=== PATIENT | male | born 1960 | race Caucasian/White ===

== ENCOUNTER 2024-12-20 11:29 | Emergency (ER) | payer OTHER, SELFPAY ==
--- OUTSIDE RECORDS SUMMARY | 2024-12-20 11:35 | XMS_ITS ---
Author Organization [facility] Address [address] [address] Care Team Providers Care Combatant Swimmer Name Role Phone Carolyne Mon Primary Care Provider Ollie Meng MD [phone] REASON FOR VISIT knee inj MEDICATIONS Medication SIG (Take, Route, Frequency, Duration) Notes Start Date End Date Status Diclofenac Active Desvenlafaxine ER Ac tive Tadalafil 5 MG as directed Act katerin Pravastatin Sodium 40 MG as directed Active methylPREDNISolone 4 MG as directed Orally 024 Active Diclofenac Sodium 75 MG 1 tablet as need ed Orally Twice a day for 30 08/19/2024 Active Pravachol Not-Taking Xarelto Not-Taking Voltaren Not-Taking OrthoVisc 30 MG/2ML inject one syringe i nto each knee Intra-articular in physicians office once a week for 3 weeks for 30 days 03/27/2023 Active BuPROPion HBr Active Meclizine HCl Active Pristiq Active Pantoprazole Sodium Active Encounters Encounter Location Date Provider Diagnosis [facility] [address] [address] 09/29/2024 Ollie Fuller MD Localized primary osteoarthritis of left lower leg M17.12 ASSESSMENTS Encounter Date Diagnosis Assessment Notes Treatment Notes Treatment Clinical Notes 09/29/2024 Localized primary osteoarthritis of left lower leg (ICD-10 - M17.12) PLAN OF TREATMENT No Information History and Physical Notes * HPI (History of Present Illness) Category Sub-Category Detail Notes Depression Screening PHQ-2 (2015 Edition) Little interest or pleasure in doing things?: Not at all Feeling down, depressed, or hopeless?: N ot at all Total Score: 0
--- OUTSIDE RECORDS SUMMARY | 2024-12-20 11:35 | XMS_ITS | Clinical Summary ---
Author Organization [facility] Address [address] [place] [address] Care Team Providers Care Patient Coordinator Name Role Phone Carolyne Mon MD Primary Care Provider Allergies No known active allergies Medications valACYclovir (VALTREX) 500 mg tablet 500 mg. 0 0 4 Active desvenlafaxine ER (PRISTIQ) 50 mg 24 hr tablet 50 mg. 0 0 4 Active cyclobenzaprine (FLEXERIL) 10 mg tablet Take 1 tablet (10 mg total) by mouth 3 (three) times a day as needed Active diclofenac DR (VOLTAREN) 75 mg EC tablet Take 1 tablet (75 mg total) by mouth 3 (three) times a day as needed Active pravastatin (PRAVACHOL) 40 mg tablet 3 Active tadalafiL (CIALIS) 5 mg tablet TAKE 1-4 TABLETS BY MOUTH NEEDED PRIOR TO INTERCOURSE 3 Active Active Problems Problem Noted Date Diagnosed Date Cellulitis 07/31/2014 Overview (02/15/2017): Cellulitis Medical History Medical History Date Comments High cholesterol Social History Tobacco Use Types Packs/Day Years Used Date Smoking Tobacco: Never Tobacco Cessation:Counseling Given: Not Answered AUDIT-C Answer Date Recorded Q1: How often do you have a drink containing alc ohol? Never 06/29/2021 Average Number of Drinks Not on file 021 Frequency of Binge Drinking Not on file 06/11 Personal Safety Answer Date Recorded Getting School Help Needed Not on file 10/22 Sex and Gender Information Value Date Recorded Sex Assigned at Not on file Legal Sex Male 10:41 AM RADIOLOGY SPECIALIST Gender Identity Not on file Sexual Orientation Not on file Obstetrics History Last Filed Vital Signs Vital Sign Reading Time Taken Comments Blood Pressure 140/88 10/17/2023 6:43 PM RADIOLOGY SPECIALIST Pulse 114 10/17/2023 6:43 PM RADIOLOGY SPECIALIST Temperature 37.1 C (98.8 F) 10/17/2023 6:43 PM RADIOLOGY SPECIALIST Respiratory Rate 20 10/17/2023 6:43 PM RADIOLOGY SPECIALIST Oxygen Saturation 97% 10/17/2023 6:43 PM RADIOLOGY SPECIALIST Inhaled Oxygen Concentration - - Weight 97.5 kg (215 lb) 10/17/2023 6:43 PM RADIOLOGY SPECIALIST Height 196.9 cm (6' 5.5 ) 10/17/2023 6:43 PM RADIOLOGY SPECIALIST Body Mass Index 25.17 10/17/2023 6:43 PM RADIOLOGY SPECIALIST Plan of Treatment Health Maintenance Due Date Last Done Comments Colon Cancer Screening-Colonoscopy 1960 Depression Screening 1960 Hepatitis C Screening 1960 Prostate Cancer Screening-PSA 1960 Hepatitis B Screening 1978 Regular Well Visit/Exam 18-64 1978 Zoster Vaccine (2 of 3) 04/17/2015 02/21/20 15, 05/13/2013 Covid-19 Vaccine (2023-2 5 season) 2024 11/09/2021, 01/03/2021, 12/06/2020 Influenza Vaccine (#1) 2024 , 08/22/2022 DTaP/Tdap/Td Vaccine (2 - Td or Tdap) 08/30/2033 08/30/2023 Pneumococcal vaccine <65 Aged Out No longer eligible based on patient's age to complete this topic Insurance [facility] CHOICE PLUS [facility] HMO/PPO Address[place] [id number] [place] [id number] [facility] CHOICE PLUS [facility] HMO/PPO Address: [facility] [address] [place] [id number] Care Teams Patient Coordinator Relationship Specialty Start Date End Date Carolyne Mon MD [address] [facility] [address] [address] PCP - General 04/11/17
--- OUTSIDE RECORDS SUMMARY | 2024-12-20 11:35 | XMS_ITS | Referral Summary ---
Author Organization [facility] Address [address] [facility] [place] [address] Care Team Providers Care Tester Regulator Name Role Phone Unavailable Primary Care Provider Unavailabl e Source Comments [facility] Affiliates and Associated Physician Practices is amultiple site organization consisting of ambulatory clinics and hospital sitesin [place], [place], [place] and [place]. This disclosure is being madepursuant to the Care Everywhere program and may not contain all information available regarding this patient. Last updated 18.[facility] [employer] Social History Tobacco Use Types Packs/Day Years Used Date Smoking Tobacco: Never Assessed Sex and Gender Information Value Date Recorded Sex Assigned at Not on file Gender Identity Not on file Sexual Orientation Not on file Plan of Treatment Not on file
--- OUTSIDE RECORDS SUMMARY | 2024-12-20 11:35 | XMS_ITS ---
Author Organization [facility] Address [address] [facility] [address], [place] [address] Care Team Providers Care Tier Lift Truck Operator Name Role Phone Carolyne Mon Primary Care Provider Unavailjovana Fuller MD, Ollie Unavailable Mat EATON, Rita Unavailable [phone] REASON FOR VISIT RE:RE:Addendum MEDICATIONS Medication SIG (Take, Route, Fr equency, Duration) Notes Start Date End Date Status Diclofenac Sodium 75 MG 1 tablet as need ed Orally Twice a day for 30 10/26/2024 Active Encounters Encounter Location Date Provider Diagnosis [facility] [address] [facility] [address], [place] [address] 10/23/2024 Rita Rivero NP PLAN OF TREATMENT Medication Medication Name Sig Start Date Stop Date Notes Diclofenac Sodium 75 MG 1 tablet as need ed Orally Twice a day for 30 10/26/2024
--- OUTSIDE RECORDS SUMMARY | 2024-12-20 11:35 | XMS_ITS | Patient Health Record ---
Author Organization [facility] Address [address] [place], [place] [id number] Care Team Providers Care Rhia Name Role Phone Carolyne Mon Primary Care Provider Francisco Romano Unavailable [phone] Migration, Provider Unavailable Unavailable Allergies No Known Allergies Reason For Referral No Information Medications Medication SIG (Take, Route, Frequency, Duration) Notes Start Date End Date Status PREVASTATIN QD *Please review f or potential replacement for e-prescription and drug interaction check* Active Diclofenac Potassium SODIUM 25 MG 1 TAB(S) ORALLY 4 TIMES A DAY for 30 DAY(S) *Please review and pick correct strength-formulatio n from Medispan options. If intended option is not shown, discontinue and re-order from Quick Search* Active Pantoprazole Sodium 40 MG 1 tab(s) orally once a day for 30 day(s) Active Meclizine HCl 25 MG 1 tab(s) orally 3 times a day Active buPROPion HCl 100 MG 1 tab(s) orally 2 times a day for 30 day(s) Active Encounters Encounter Location Date Provider Diagnosis [facility] [address] [place], [place] [phone] 10/24/2024 Provider Migration Plan Of Treatment No Information Insurance Providers Payer Name Payer Address Payer Phone Subscriber Number Group Number Insured Name Patient Relationship to Insured Coverage Start Date Coverage End Date [facility] [address] [place] [address] [id number] Chau Branham Self - patient is the insured Medical (General) History Medical History History ICD Code Pertinent Medical History: Eye problems, Vision changes, Anxiety/Depression, Surgical History Surgery Date(Month/Year) tonsillectomy ankle surgery appendectomy
--- OUTSIDE RECORDS SUMMARY | 2024-12-20 11:35 | XMS_ITS | Encounter Summary ---
Author Organization [facility] Address [address] [facility] [place] [address] Care Team Providers Care Composition Mixer Name Role Phone Unavailable Primary Care Provider Unavailabl e Encounter Details Date Type Department Care Team (Late st Contact Info) Description 02/27/2024 Lab Requisition [facility] - DermPath Lab [address] [facility] [place] [id number] Audie Parrish DO [address] [address] Social History Tobacco Use Types Packs/Day Years Used Date Smoking Tobacco: Never Assessed Sex and Gender Information Value Date Recorded Sex Assigned at Not on file Gender Identity Not on file Sexual Orientation Not on file documented as of this encounter Plan of Treatment Not on file documented as of this encounter Procedures Procedure Name Priority Date/Time Associated Diagnosis Comments DERMATOPATHOLOGY Routine 02/26/2024 3:33 AM CDT documented in this encounter Results * DERMATOPATHOLOGY (02/26/2024 3:33 AM CDT) Case Report Dermatopathology Report Case: [id number] Authorizing Provider: Audie Parrish DO Collected: 02/26/2024 03:33 AM Ordering Location: [facility] - Received: 02/27/2024 09:53 AM DermPath Lab Pathologist: Stephani Pelaez MD Specimen: Skin, left palm 4 5:31 PM CDT DERMATOPATHOLOGY LABORATORY Final Diagnosis Specimen A. SKIN, left palm: GRANULOMATOUS DERMATITIS CONSISTENT WITH A RUPTURED CYST OR HAIR FOLLICLE (L72.0) (see microscopic description and comment) 4 5:31 PM CDT DERMATOPATHOLOGY LABORATORY Clinical History Neoplasm Scar 4 5:31 PM CDT DERMATOPATHOLOGY LABORATORY Gross Description Specimen A: Received is one formalin filled container labeled with the patient's name and designated left palm. The specimen consists of a piece of skin measuring 7x7x2 mm. The margin is inked green. The specimen is bisected lengthwise and submitted in 1 cassette. Jar 0. 4 5:31 PM T DERMATOPATHOLOGY LABORATORY Microscopic Description Specimen A. SKIN, left palm: Neutrophils, histiocytes, and multinucleated giant cells are present within the dermis and extend to the base of the specimen. Grocott's methenamine silver (GMS) stain fails to highlight fungal elements in the available sections. MANI stain is negative for acid-fast mycobacteria in the sections examined. Treponema pallidum immunostain does not reveal spirochetes. Birefringent material is not observed when the specimen is examined under polarized light. Additional deeper sections were obtained and reviewed. COMMENT: The overall histologic features are consistent with a ruptured follicle or cyst. The histologic differential diagnosis includes foreign body reaction. Although unlikely given the negative GMS, MANI, and Treponema pallidum immunostain, an infectious process cannot be entirely excluded, and clinical correlation with culture is recommended if clinically indicated. 4 5:31 PM CDT DERMATOPATHOLOGY LABORATORY Disclaimer An external and internal positive and negative controls are appropriate for the histochemical, immunohistochemical and immunofluorescence stain(s) in this case (if any), except where stated explicitly. The performance characteristics of the stain(s) cited in this report were developed and its performance characteristic determined by the Dermatopathology Laboratory at [facility], directed by Dr. Jordi Treviño. These tests need not be, and therefore are not, approved by the [place] Food and Drug Administration. The tests are used for clinical purposes. Billing Codes Specimen Charges Stain Charges 72653 1 [id number] 1 1 1 4 5:31 PM CDT DERMATOPATHOLOGY LABORATORY Embedded Images 4 5:31 PM CDT DERMATOPATHOLOGY LABORATORY Pathology/Cytolo gy TISSUE SPECIMEN FROM SKIN / Unknown 02/26/2024 3:33 AM CDT 02/27/2024 9:53 AM CDT Audie Parrish DO LAB - PATHOLOGY/CYTO LOGY ORDERABLES DERMATOPATHOLOGY LABORATORY [facility] - Department of Dermatology [facility] [address] [place] [address], [address] [phone] documented in this encounter Visit Diagnoses Not on filedocumented in this encounter
--- OUTSIDE RECORDS SUMMARY | 2024-12-20 11:35 | XMS_ITS | Clinical Summary ---
Author Organization [facility] Address [address] [place] [address] Phone Care Team Providers Care Analytical Laboratory Technician Name Role Phone Carolyne Mon MD Primary Care Provider [phone] Allergies Active Allergy Reactions Criticality Noted Date Comments No Known Drug Allergy Unknown 05/03/2013 Medications diclofenac 75 MG PO TBEC Take 75 mg by mouth 3 times daily as needed. Active Desvenlafaxine Succinate 100 MG TABLET SR 24 HR Take 1 Tab by mouth daily. Active cyclobenzaprine (FLEXERIL) 10 MG Tablet Take 10 mg by mouth 3 times daily as needed for Muscle spasms. Active VALGANCICLOVIR HCL PO Take 1 Tab by mouth. Active Multiple Vitamins-Minera ls (MULTIVITAMIN PO) Take 1 Tab by mouth daily. Active pravastatin (PRAVACHOL) 10 MG Tablet 9 Active XARELTO 20 MG Tablet TK 1 T PO IN THE JEFFRY WITH DINNER TK WF 5 9 Active pravastatin (PRAVACHOL) 20 MG Tablet 9 Active diclofenac (VOLTAREN) 0.1 % SolutionIndicat ions:Abrasion of right cornea, initial encounter Place 1 Drop in affected eye(s) 4 times daily as needed for Other. 1 Bottle 0 Active Additional Information Patient not taking.Reported on 03/08/2024 buPROPion (WELLBUTRIN) 150 MG XL tablet 2 Active Active Problems No known active problems Family History Medical History Relation Name Comments Stroke Father Polycystic Kidney Disease Mother Relation Name Status Comments Father Mother Social History Tobacco Use Types Packs/Day Years Used Date Smoking Tobacco: Never Smokeless Tobacco: Never Tobacco Cessation:Counseling Given: Not Answered Alcohol Use Standard Drinks/Week Comments No 0 (1 standard drink = 0.6 oz pur e alcohol) Sexually Active Control Partners Comments Not Currently Sex and Gender Information Value Date Recorded Sex Assigned at Not on file Legal Sex Male 8:01 AM CDT Gender Identity Not on file Sexual Orientation Not on file 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 Not on file Not on f ile Last Filed Vital Signs Vital Sign Reading Time Taken Comments Blood Pressure 108/76 03/08/2024 1:51 PM CDT Pulse 114 03/08/2024 1:51 PM CDT Temperature 36.3 C (97.3 F) 03/08/2024 1:51 PM CDT Respiratory Rate 16 03/08/2024 1:51 PM CDT Oxygen Saturation 98% 03/08/2024 1:51 PM CDT Inhaled Oxygen Concentration - - Weight 102.1 kg (225 lb) 12/18/2023 8:45 AM MAGNETIZER Height 196.9 cm (6' 5.5 ) 12/18/2023 8:45 AM MAGNETIZER Body Mass Index 26.34 12/18/2023 8:45 AM MAGNETIZER Plan of Treatment Health Maintenance Due Date Last Done Comments Hepatitis C Virus (HCV) Screening 1960 Cologuard 2010 Immunochemical Fecal Occult Blood 2010 Pneumococcal Immunization (5 0+ years) (1 of 1 - PCV) 2010 Zoster Immunization (2 of 3) 04/17/201510/2015, 05/13/2013 PSA Discussion 2015 Influenza Immunization (#1) 2024 10, 08/22/2022 SARS-COV-2 Immunization ( season) 2024 11/09/2021, 01/03/2021, 12/06/2020 Colonoscopy 08/10/2026 08/10/2016 Colorectal Cancer Screening 08/10/2026 Respiratory Syncytial Virus (RSV) Immunization (Adult) (1 - 1-dose 75+ series) 2035 08/10/2016 DTaP/Tdap/Td Immunization Discontinued 08/30/2023 TdaP Immunization Completed 08/30/2023 Hepatitis B Immunization Aged Out No longer eligible based on patient's age to complete this topic Meningococcal Immunization (ACWY) Aged Out No longer eligible based on patient's age to complete this topic Pneumococcal Immunization Combined Aged Out No longer eligible based on patient's age to complete this topic Rotavirus Immunization Aged Out No lo nger eligible based on patient's age to complete this topic Insurance [facility] Care Teams Analytical Laboratory Technician Relationship Specialty Start Date End Date Carolyne Mon MD [address] [facility] [place] [address] [place] [address] PCP - General Internal Medicine 08/02/16
--- OUTSIDE RECORDS SUMMARY | 2024-12-20 11:35 | XMS_ITS | Encounter Summary ---
Author Organization [facility] Address [address] [facility] [place] [address] Care Team Providers Care Manager Of Development Name Role Phone Unavailable Primary Care Provider Unavailabl e Encounter Details Date Type Department Care Team (Late st Contact Info) Description 06/04/2023 Lab Requisition [facility] - [facility]erm[facility] Lab [address] [facility] [place] [address] Audie Parrish DO [address] [address] Social History Tobacco Use Types Packs/Day Years Used Date Smoking Tobacco: Never Assessed Sex and Gender Information Value Date Recorded Sex Assigned at Not on file Gender Identity Not on file Sexual Orientation Not on file documented as of this encounter Plan of Treatment Not on file documented as of this encounter Procedures Procedure Name Priority Date/Time Associated Diagnosis Comments DERMATOPATHOLOGY Routine 06/03/2023 12:0 0 AM CDT documented in this encounter Results * DERMATOPATHOLOGY (06/03/2023 12:00 AM CDT) Case Report Dermatopathology Report Case: [id number] Authorizing Provider: Audie Parrish DO Collected: 06/03/2023 12:00 AM Ordering Location: [facility] DermPath Lab Received: 06/04/2023 11:19 AM Pathologist: Shwetha Niño MD Specimen: Skin, right hand 3:15 PM CDT DERMATOPATHOLOGY LABORATORY Final Diagnosis Specimen A. SKIN, right hand: VACUOLAR INTERFACE DERMATITIS WITH FULL THICKNESS EPIDERMAL NECROSIS (L30.8) (see microscopic description and comment) 3 3:15 PM CDT DERMATOPATHOLOGY LABORATORY Clinical History Bee sting 3 3:15 PM CDT DERMATOPATHOLOGY LABORATORY Gross Description Specimen A: Received is one formalin filled container labeled with the patient's name and designated right hand. The specimen consists of a curettage and desiccation biopsy measuring 3x3x1 mm. Jar 0. 3 3:15 PM T DERMATOPATHOLOGY LABORATORY Microscopic Description Specimen A. SKIN, right hand: There is full thickness epidermal necrosis. Adjacent to this there are scattered dyskeratotic keratinocytes and vacuolar alteration along the basal cell layer. A mild, perivascular lymphocytic infiltrate is observed in the superficial dermis. HSV and VZV stains are negative for viral infection. Additional deeper sections were obtained and reviewed. COMMENT: Given the superficial nature of the biopsy specimen, a deeper dermal process cannot be excluded. 3 3:15 PM T DERMATOPATHOLOGY LABORATORY Disclaimer An external and internal positive and negative controls are appropriate for the histochemical, immunohistochemical and immunofluorescence stain(s) in this case (if any), except where stated explicitly. The performance characteristics of the stain(s) cited in this report were developed and its performance characteristic determined by the Dermatopathology Laboratory at [facility], directed by Dr. Jordi Treviño. These tests need not be, and therefore are not, approved by the [place] Food and Drug Administration. The tests are used for clinical purposes. Billing Codes Specimen Charges Stain Charges 23784 1 [id number] 1 1 3 3:15 PM CDT DERMATOPATHOLOGY LABORATORY Embedded Images 3 3:15 PM CDT DERMATOPATHOLOGY LABORATORY Pathology/Cytolog y TISSUE SPECIMEN FROM SKIN / Unknown 06/03/2023 06/04/2023 11:19 AM CDT Audie Parrish DO LAB - PATHOLOGY/CYTO LOGY ORDERABLES DERMATOPATHOLOGY LABORATORY [facility] - Department of Dermatology [address], [address] [phone] documented in this encounter Visit Diagnoses Not on filedocumented in this encounter
--- OUTSIDE RECORDS SUMMARY | 2024-12-20 11:35 | XMS_ITS | Referral Summary ---
Author Organization [facility] Address [address] [place] [address] Care Team Providers Care Lift Team Technician Name Role Phone Carolyne Mon MD [...] Diagnosed Date Cellulitis 07/31/2014 Overview (02/15/2017): Cellulitis Social History Tobacco Use Types Packs/Day Years [...] on file Legal Sex Male 10:41 AM UNIX ENGINEER Gender Identity Not on file Sexual Orientation Not on file Last Filed Vital Signs Vital Sign Reading Time Taken Comments Blood Pressure 140/88 10/17/2023 6:43 PM UNIX ENGINEER Pulse 114 10/17/2023 6:43 PM UNIX ENGINEER Temperature 37.1 C (98.8 F) 10/17/2023 6:43 PM UNIX ENGINEER Respiratory Rate 20 10/17/2023 6:43 PM UNIX ENGINEER Oxygen Saturation 97% 10/17/2023 6:43 PM UNIX ENGINEER Inhaled Oxygen Concentration - - Weight 97.5 kg (215 lb) 10/17/2023 6:43 PM UNIX ENGINEER Height 196.9 cm (6' 5.5 ) 10/17/2023 6:43 PM UNIX ENGINEER Body Mass Index 25.17 10/17/2023 6:43 PM UNIX ENGINEER Plan of Treatment Not on file Insurance [facility] PL[facility] PL[facility] Care Teams Lift Team Technician Relationship Specialty Start Date End Date Carolyne Mon MD [address] [place] [id number] PCP - General 04/11/17
--- OUTSIDE RECORDS SUMMARY | 2024-12-20 11:35 | XMS_ITS | Encounter Summary ---
Author Organization [facility] Address [address] [facility] [place] [address] Care Team Providers Care Electric Train Driver Name Role Phone Unavailable Primary Care Provider Unavailabl e Encounter Details Date Type Department Care Team (Late st Contact Info) Description 04/16/2024 Lab Requisition [facility] - DermPath Lab [address] [facility] [place] [place] [id number] Audie Parrish DO [address] [address] Social History Tobacco Use Types Packs/Day Years Used Date Smoking Tobacco: Never Assessed Sex and Gender Information Value Date Recorded Sex Assigned at Not on file Gender Identity Not on file Sexual Orientation Not on file documented as of this encounter Plan of Treatment Not on file documented as of this encounter Procedures Procedure Name Priority Date/Time Associated Diagnosis Comments DERMATOPATHOLOGY Routine 04/15/2024 12:0 0 AM CDT documented in this encounter Results * DERMATOPATHOLOGY (04/15/2024 12:00 AM CDT) Case Report Dermatopathology Report Case: [id number] Authorizing Provider: Audie Parrish DO Collected: 04/15/2024 12:00 AM Ordering Location: [facility] - Received: 04/16/2024 10:09 AM DermPath Lab Pathologist: Lili Treviño MD Specimen: Skin, right neck 4 2:00 PM CDT DERMATOPATHOLOGY LABORATORY Final Diagnosis Specimen A. SKIN, right neck: FOLLICULITIS, SUPPURATIVE (L73.8) GRANULOMATOUS DERMATITIS CONSISTENT WITH A RUPTURED CYST OR HAIR FOLLICLE (L72.0) 4 2:00 PM CDT DERMATOPATHOLOGY LABORATORY Clinical History Insect bite. 4 2:00 PM CDT DERMATOPATHOLOGY LABORATORY Gross Description Specimen A: Received is one formalin filled container labeled with the patient's name and designated right neck. The specimen consists of a shave biopsy measuring 5x4x1 mm. Jar 0. 2:00 PM [facility] DERMATOPATHOLOGY LABORATORY Microscopic Description Specimen A. SKIN, right neck: Sections show rupture of the follicular infundibulum, with numerous neutrophils. Neutrophils, histiocytes, and multinucleated giant cells are present within the dermis. 2:00 PM [facility] DERMATOPATHOLOGY LABORATORY Disclaimer An external and internal positive and negative controls are appropriate for the histochemical, immunohistochemical and immunofluorescence stain(s) in this case (if any), except where stated explicitly. The performance characteristics of the stain(s) cited in this report were developed and its performance characteristic determined by the Dermatopathology Laboratory at [facility], directed by Dr. Jordi Treviño. These tests need not be, and therefore are not, approved by the [place] Food and Drug Administration. The tests are used for clinical purposes. Billing Codes Specimen Charges Stain Charges 30870 1 4 2:00 PM T DERMATOPATHOLOGY LABORATORY Embedded Images 2:00 PM T DERMATOPATHOLOGY LABORATORY Pathology/Cytolog y TISSUE SPECIMEN FROM SKIN / Unknown 04/15/2024 04/16/2024 10:09 AM CDT Audie Parrish DO LAB - PATHOLOGY/CYTO LOGY ORDERABLES DERMATOPATHOLOGY LABORATORY [facility] - Department of Dermatology [address], [address] [phone] documented in this encounter Visit Diagnoses Not on filedocumented in this encounter
--- OUTSIDE RECORDS SUMMARY | 2024-12-20 11:35 | XMS_ITS | Clinical Summary ---
Author Organization [facility] Address [address] [place] [address] Care Team Providers Care Cytotechnologist Supervisor Name Role Phone Unavailable Primary Care Provider Unavailabl e Source Comments [facility],non-owned Affiliates and Associated Physician Practices is amultiple site organization consisting of ambulatory clinics and hospital sitesin [place], [place], [place] and [place]. This disclosure is being madepursuant to the Care Everywhere program and may not contain all information available regarding this patient. Last updated 18.[facility] Social History Tobacco Use Types Packs/Day Years Used Date Smoking Tobacco: Never Assessed Sex and Gender Information Value Date Recorded Sex Assigned at Not on file Gender Identity Not on file Sexual Orientation Not on file Plan of Treatment Health Maintenance Due Date Last Done Comments COLOGUARD (AGES 45-75) - COL ON CA SCREENING 1960 COLON MONITORING 1960 COLONOSCOPY - COLON CA SCREENING 1960 CT COLONOGRAPHY - COLON CA SCREENING 1960 Colorectal Cancer Screening 1960 FIT - COLON CA SCREENING 1960 FLEX SIG - COLON CA SCREENING 1960 LIPID TESTING 1960 HIV SCREENING 1975 HEPATITIS C SCREENING 10/25/1978 DTAP/TDAP/TD VACCINES (1 - Tdap) 1979 PNEUMOCOCCAL VACCINE 50+ (1 of 1 - PCV) 2010 ZOSTER VACCINE (1 of 2) 2010 COVID-19 VACCINE ( - 2023-2 5 season) 2024 INFLUENZA VACCINE (#1) 2024 DEPRESSION SCREENING 11/11/2024 Respiratory Syncytial Virus (RSV) Vaccine Pt: or over 60 yrs (1 - 1-dose 75+ series) 2035 HEPATITIS B VACCINE Aged Out No longe r eligible based on patient's age to complete this topic HIB VACCINE Aged Out No longer eligi ble based on patient's age to complete this topic HPV VACCINE Aged Out No longer eligi ble based on patient's age to complete this topic MENINGOCOCCAL (Group B) VACCINE Aged Out No longer eligible based on patient's age to complete this topic MENINGOCOCCAL VACCINE Aged Out No mo vipin eligible based on patient's age to complete this topic PNEUMOCOCCAL VACCINE Aged Out No long er eligible based on patient's age to complete this topic
--- OUTSIDE RECORDS SUMMARY | 2024-12-20 11:35 | XMS_ITS ---
Author Organization [facility] Address [address] [place], [place] [id number] Care Team Providers Care Dust Handler Name Role Phone Carolyne Mon Primary Care Provider Unavailabl e Francisco Enriquez Unavailable [phone] Migration, Provider Unavailable Unavailable REASON FOR VISIT [facility] Encounter Medications Medication SIG (Take, Route, Frequency, Duration) [...] Date Provider Diagnosis [facility] [address] [facility] [address] [place], [place] [id number] 10/24/2024 Provider Migration Plan Of Treatment No Information Progress Notes * Gunnar BRANHAMOB:1960 ([age] yo M)Acc No.[id number]:10/24/2024 Patient: Chau JOYA Provider: Ariela marks Migration :1960 A ge:63 Y S ex:Male Date:10/24/2024 [address] [facility] Pcp:Carolyne Mon Subjective: * Chief Complaints: * 1 . [facility] To [facility] Conversion Encounter. * Medical History: * Medications: T aking Diclofenac Potassium SODIUM 25 MG DELAYED RELEASE TABLET 1 TAB(S) ORALLY 4 TIMES A DAY , Notes to Pharmacist: *Please review and pick correct strength-formulation [facility] options. If intended option is not shown, discontinue and re-order from Quick Search*, Taking Meclizine HCl 25 MG Tablet 1 tab(s) orally 3 times a day , Taking Pantoprazole Sodium 40 MG Tablet Delayed Release 1 tab(s) orally once a day , Taking buPROPion HCl 100 MG Tablet 1 tab(s) orally 2 times a day , Taking PREVASTATIN QD , Notes to Pharmacist: *Please review for potential replacement for e-prescription and drug interaction check* Objective: * Vitals: * Physical Examination: Assessment: Plan: * Treatment: * * Electronic signature of Ralf rahman Migration on 12/20/2024 at 11:34 AM BLOOD BANK BUSINESS MANAGER Sign off status: Pending * Provider: Ariela marks Migration Date: 12/25/2023 Generated for Nasrin strickland/Rubin/Sylvia on: 0 12/20/2024 11:34 AM BLOOD BANK BUSINESS MANAGER
--- OUTSIDE RECORDS SUMMARY | 2024-12-20 11:35 | XMS_ITS | Patient Health Summary ---
Author Organization [facility] Address [address] [place] [address] Care Team Providers Care Environmental Health Specialist Name Role Phone Unavailable Primary Care Provider Unavailabl e Note from [facility],non-owned Affiliates and Associated Physician Practices is amultiple site organization consisting of ambulatory clinics and hospital sitesin [place], [place], [place] and [place]. This disclosure is being madepursuant to the Care Everywhere program and may not contain all information available regarding this patient. Last updated 18.[facility] Social History Tobacco Use Types Packs/Day Years Used Date Smoking Tobacco: Never Assessed Sex and Gender Information Value Date Recorded Sex Assigned at Not on file Gender Identity Not on file Sexual Orientation Not on file Procedures * DERMATOPATHOLOGY(Performed 04/15/2024) * DERMATOPATHOLOGY(Performed 02/26/2024) * DERMATOPATHOLOGY(Performed 06/03/2023) Results * DERMATOPATHOLOGY (04/15/2024 12:00 AM CDT) Only the most recent of3 resultswithin the time period is included. Case Report Dermatopathology Report Case: [id number] Authorizing Provider: Audie Parrish DO Collected: 04/15/2024 12:00 AM Ordering Location: [facility] - Received: 04/16/2024 10:09 AM DermPath Lab Pathologist: Lili Treviño MD Specimen: Skin, right neck 2:00 PM CDT DERMATOPATHOLOGY LABORATORY Final Diagnosis Specimen A. 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 4 2:00 PM CDT DERMATOPATHOLOGY LABORATORY Gross Description Specimen A: Received is one formalin filled container labeled with the patient's name and designated right neck. The specimen consists of a shave biopsy measuring 5x4x1 mm. Jar 0. 4 2:00 PM [facility] DERMATOPATHOLOGY LABORATORY Microscopic Description Specimen A. SKIN, right neck: Sections show rupture of the follicular infundibulum, with numerous neutrophils. Neutrophils, histiocytes, and multinucleated giant cells are present within the dermis. 4 2:00 PM [facility] DERMATOPATHOLOGY LABORATORY Disclaimer An external and internal positive and negative controls are appropriate for the histochemical, immunohistochemical and immunofluorescence stain(s) in this case (if any), except where stated explicitly. The performance characteristics of the stain(s) cited in this report were developed and its performance characteristic determined by the Dermatopathology Laboratory at [facility], directed by Dr. Jordi Treviño. These tests need not be, and therefore are not, approved by the [place] Food and Drug Administration. The tests are used for clinical purposes. Billing Codes Specimen Charges Stain Charges 50612 1 4 2:00 PM T DERMATOPATHOLOGY LABORATORY Embedded Images 4 2:00 PM T DERMATOPATHOLOGY LABORATORY Pathology/Cytolog y TISSUE SPECIMEN FROM SKIN / Unknown 04/15/2024 04/16/2024 10:09 AM CDT Audie Parrish DO LAB - PATHOLOGY/CYTO LOGY ORDERABLES DERMATOPATHOLOGY LABORATORY [facility] - Department of Dermatology [address], [address] [phone]
--- OUTSIDE RECORDS SUMMARY | 2024-12-20 11:35 | XMS_ITS | Patient Health Record ---
Author Organization [facility] Address [address] [place] [address] Care Team Providers Care Multicut Line Operator Name Role Phone Carolyne Mon Primary Care Provider Unavailjovana Fuller MD, Ollie Unavailable Rita Rivero NP Unavailable [phone] ALLERGIES No Known Allergies REASON FOR REFERRAL No Information MEDICATIONS Medication SIG (Take, Route, Frequency, Duration) Notes Start Date End Date Status BuPROPion HBr Active Meclizine HCl Active Diclofenac Active Diclofenac Sodium 75 MG 1 tablet as need ed Orally Twice a day for 30 10/26/2024 Active Desvenlafaxine ER Ac tive Tadalafil 5 MG as directed Act katerin Diclofenac Sodium 75 MG 1 tablet as need ed Orally Twice a day for 30 08/19/2024 Active Pravastatin Sodium 40 MG as directed Active Pravachol Not-Taking methylPREDNISolone 4 MG as directed Orally 024 Active Xarelto Not-Taking Voltaren Not-Taking OrthoVisc 30 MG/2ML inject one syringe i nto each knee Intra-articular in physicians office once a week for 3 weeks for 30 days 03/27/2023 Active Pristiq Active Pantoprazole Sodium Active IMMUNIZATIONS Vaccine Route Administration Date Status Comme nts Influenza Unknown 07/02/2019 Administered pneumoccocal Unknown 09/01/2014 Administered Influenza Unknown 02/21/2021 Administered pneumoccocal Unknown 02/21/2021 Administered Influenza Unknown 04/09/2023 Administered pneumoccocal Unknown 04/09/2023 Administered Influenza Unknown 06/12/2023 Administered pneumoccocal Unknown 06/12/2023 Administered pneumoccocal Unknown 09/01/2019 Refused Influenza Unknown 07/07/2020 Refused Influenza Unknown 08/02/2022 Refused pneumoccocal Unknown 08/02/2022 Refused SOCIAL HISTORY Tobacco Use: Social History Observation Description Date Details (start date - stop date) Never Smoker NA - NA Sex Assigned At : Social History Observation Description Sex Assigned At Unknown Tobacco Use: Question Answer Notes Patient is a: nonsmoker Alcohol screening: Question Answer Notes Did you have a drink containing alcohol in the p ast year? 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) Active confirmed 200471102634178 Problem Other meniscus derangements, posterior horn of lateral meniscus, left knee (M23.352) Active confirmed 03755089 Problem Chondromalacia, left knee (M94.262) Active confirmed 74108789737816984 Problem Contusion of right shoulder, initial encounter (S40.011A) 024 Active confirmed 99592842601574561 Problem Strain of muscle(s) and tendon(s) of the rotator cuff of right shoulder, initial encounter (S46.011A) 024 Active confirmed 23144435754798298 Problem Other fall on same level, initial encounter (W18.39XA) 024 Active confirmed 89249491 Problem Activity, other involving exterior property and land maintenance, building and construction (Y93.H9) 024 Active confirmed 582953393 Problem Encounter for other orthopedic aftercare (Z47.89) Active confirmed 505492273 Problem Knee pain, right (M25.561) Active confirmed Problem Localized primary osteoarthritis of left lower leg (M17.12) Active confirmed 532178188 Problem Primary osteoarthritis of first carpometacarpal joint of right hand (M18.11) 023 Active confirmed 11388278 Problem Localized osteoarthritis of right knee (M17.11) Active confirmed 331776239908760 Problem 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) 023 Active confirmed 980436424 VITAL SIGNS Heart Rate 75 /min 02/26/2024 Blood pressure diastolic 70 mm Hg 08/19/2024 Height 77 in 08/19/2024 Blood pressure systolic 132 mm Hg 08/19/2024 Weight 230 lbs 08/19/2024 BMI 27.27 kg/m2 08/19/2024 Encounters Encounter Location Date Provider Diagnosis [facility] [address] [facility] [address] 02/26/2024 Rita Rivero APPLICATIONS SCIENTIST Bilateral primary osteoarthritis of knee M17.0 [facility] [address] [place] [address] 05/22/2024 Rita Rivero APPLICATIONS SCIENTIST Bilateral primary osteoarthritis of knee M17.0 [facility] [address] [place] [address] 05/29/2024 Rita Rivero APPLICATIONS SCIENTIST Bilateral primary osteoarthritis of knee M17.0 [facility] [address] [place] [address] 06/05/2024 Rita Rivero APPLICATIONS SCIENTIST Bilateral primary osteoarthritis of knee M17.0 [facility] [address] [place] [address] 06/26/2024 Ollie Fuller MD Localized primary osteoarthritis of left lower leg M17.12 [facility] [address] [facility] [address] 07/16/2024 Ollie Fuller MD Contusion of right shoulder, initial encounter S40.011A ; Strain of muscle(s) and tendon(s) of the rotator cuff of right shoulder, initial encounter S46.011A ; Other fall on same level, initial encounter W18.39XA and Activity, other involving exterior property and land maintenance, building and construction Y93.H9 [facility] [address] [place] [address] 07/21/2024 Rita Rivero APPLICATIONS SCIENTIST Contusion of right shoulder, initial encounter S40.011A and Strain of muscle(s) and tendon(s) of the rotator cuff of right shoulder, initial encounter S46.011A [facility] [address] [place] [address] 08/19/2024 Ollie Fuller MD Contusion of right shoulder, subsequent encounter S40.011D ; Strain of muscle(s) and tendon(s) of the rotator cuff of right shoulder, subsequent encounter S46.011D ; Other fall on same level, subsequent encounter W18.39XD and Localized osteoarthritis of right knee M17.11 [facility] [address] [place] [address] 09/29/2024 Ollie Fuller MD Localized primary osteoarthritis of left lower leg M17.12 [facility] [address] [place] [address] 02/07/2024 Rita Rivero APPLICATIONS SCIENTIST [facility] [address] [place] [address] 02/07/2024 Rita Rivero APPLICATIONS SCIENTIST [facility] [address] [place] [address] 04/18/2024 Rita Rivero APPLICATIONS SCIENTIST [facility] [address] [place] [address] 04/20/2024 Rita Rivero APPLICATIONS SCIENTIST [facility] [address] [place] [address] 04/23/2024 Rita Rivero APPLICATIONS SCIENTIST [facility] [address] [place] [address] 05/08/2024 Rita Rivero APPLICATIONS SCIENTIST [facility] [address] [place] [address] 07/20/2024 Rita Rivero APPLICATIONS SCIENTIST [facility] [address] [place] [address] 07/21/2024 Rita Rivero APPLICATIONS SCIENTIST [facility] [address] [place] [address] 09/23/2024 Rita Rivero APPLICATIONS SCIENTIST [facility] [address] [place] [address] 09/23/2024 Rita Rivero APPLICATIONS SCIENTIST [facility] [address] [facility] [address] 09/24/2024 Rita Rivero APPLICATIONS SCIENTIST [facility] [address] [place] [address] 09/24/2024 Rita Rivero APPLICATIONS SCIENTIST [facility] [address] [facility] [address] 10/23/2024 Rita Rivero APPLICATIONS SCIENTIST [facility] [address] [place] [address] 10/23/2024 Rita Rivero APPLICATIONS SCIENTIST ASSESSMENTS Encounter Date Diagnosis Assessment Notes Treatment Notes Treatment Clinical Notes 02/26/2024 Bilateral primary osteoarthritis of knee (ICD-10 - M17.0) 05/22/2024 Bilateral primary osteoarthritis of knee (ICD-10 - M17.0) 05/29/2024 Bilateral primary osteoarthritis of knee (ICD-10 - M17.0) 06/05/2024 Bilateral primary osteoarthritis of knee (ICD-10 - M17.0) 06/26/2024 Localized primary osteoarthritis of left lower leg (ICD-10 - M17.12) 07/16/2024 Contusion of right shoulder, initial encounter (ICD-10 - S40.011A) 07/21/2024 Contusion of right shoulder, initial encounter (ICD-10 - S40.011A) 08/19/2024 Contusion of right shoulder, subsequent encounter (ICD-10 - S40.011D) 09/29/2024 Localized primary osteoarthritis of left lower leg (ICD-10 - M17.12) 07/16/2024 Strain of muscle(s) and tendon(s) of the rotator cuff of right shoulder, initial encounter (ICD-10 - S46.011A) 07/21/2024 Strain of muscle(s) and tendon(s) of the rotator cuff of right shoulder, initial encounter (ICD-10 - S46.011A) 08/19/2024 Strain of muscle(s) and tendon(s) of the rotator cuff of right shoulder, subsequent encounter (ICD-10 - S46.011D) 07/16/2024 Other fall on same level, initial encounter (ICD-10 - W18.39XA) 08/19/2024 Other fall on same level, subsequent encounter (ICD-10 - W18.39XD) 07/16/2024 Activity, other involving exterior property and land maintenance, building and construction (ICD-10 - Y93.H9) 08/19/2024 Localized osteoarthritis of right knee (ICD-10 - M17.11) PLAN OF TREATMENT No Information Insurance Providers Payer Name Payer Address Payer Phone Subscriber Number Group Number Insured Name Patient Relationship to Insured Coverage Start Date Coverage End Date [employer] [address] [address] [place] [address] [id number] Chau Branham Self - patient is the insured MEDICAL (GENERAL) HISTORY Medical History History ICD Code HLD Surgical History Surgery Date(Month/Year) Ankle 2018 Appendicectomy Hammer toe operation Right knee left knee scope with PLM and chondroplas ty (ACS) 11/18/2019 Foot surgery Ankle surgery Tonsillectomy Appendectomy
[2024-12-20 11:36] VITALS: BP 146/98; PULSE 76; RESP 20; TEMP 36.7; O2SAT 100
--- OUTSIDE RECORDS SUMMARY | 2024-12-20 11:36 | XMS_ITS | Continuity of Care Document ---
Author Organization [facility] Address [address] [place] [address] Phone Care Team Providers Care Aircraft Layout Worker Name Role Phone Bobby Nixon MD Unavailable Unavailable Advance Directives Directive Yes / No Effective Date File Name No Information Encounters Encounter Description Practice Location Reason(s) For Visit Diagnoses Date Provider Providers Copied on Encounter [facility], [address], [place], [place], [id number], [place] tel:[phone] SEC Leonidas CORTEZ Professional No Information [address], [place], [place], [address], [place]. tel:[phone] Family History Family Member Type Diagnosis Age At Onset No Information Payers Payer name Insurance type Covered green party ID Authoriza tion(s) No Information Social History Type Description Quantity Date Captured Comments Sex Male Smoking Status No Information Chief Complaint And Reason For Visit No Information Reason For Referral Reason For Referral No Information History Of Present Illness Encounter Date Complaint History Of Prese nt Illness No Information Functional Status Date Functional Assessmen t No Information Instructions Date Instruction Additional Infor mation No Information Assessments Type Assessment Date No Information Patient Care Teams Name Effective Dates (start - stop) Status Members No Information
--- OUTSIDE RECORDS SUMMARY | 2024-12-20 11:36 | XMS_ITS ---
Author Organization [facility] Address [address] [place], [place] [id number] Care Team Providers Care Paper Cone Machine Tender Name Role Phone Carolyne Mon Primary Care Provider Francisco Romano Unavailable [phone] Allergies No Known Allergies REASON FOR VISIT pt found a small amount of blood in ear, but not bleeding all over Medications Medication SIG (Take, Route, Fr equency, Duration) Notes Start Date End Date Status BUPROPION 100 mg 1 tab(s) orally 2 ti mes a day for 30 day(s) Active PREVASTATIN qd Active DICLOFENAC sodium 25 mg 1 tab(s) orally 4 times a day for 30 day(s) Active MECLIZINE 25 mg 1 tab(s) orally 3 ti mes a day Active PANTOPRAZOLE 40 mg 1 tab(s) orally once a day for 30 day(s) Active Encounters Encounter Location Date Provider Diagnosis [facility] [place] [address] [place], [place] [id number] 07/08/2023 Francisco Enriquez Abrasion of right ear, initial encounter S00.411A Assessments Encounter Date Diagnosis (ICD Code) Assessment Notes Treatment Notes Treatment Clinical Notes Section Notes 07/08/2023 Abrasion of right ear, initial encounter (ICD-10 - S00.411A) observation, no blood seen today in rt EAC,, Q-tips are to be avoided Plan Of Treatment Treatment Notes Assessment Notes Abrasion of right ear, initial encounter observation, no blood seen today in rt EAC,, Q-tips are to be avoided Next Appt Details Follow Up: prn, Reason: Progress Notes * Gunnar BRANHAMOB:1960 ([age] yo M)Acc No.[id number]:07/08/2023 Progress Note Patient: Chau Martinez Provider: Tanisha Enriquez DO :1960 A ge:62 Y S ex:Male Date:07/08/2023 Address:[address] [place] [address] Pcp:Carolyne Mon Subjective: * Chief Complaints: * 1 . Pt found a small amount of blood in ear, but not bleeding all over. * HPI: E ar/General: pt states last week he found a little blood on his Q-tip after cleaning his R- ear, thought it was a little odd, he did go to [facility] process [facility] and was placed on amoxicillin for bacterial infection for 10 days. * ROS: C ONSTITUTIONAL: weight change N o. f atigue N o. c hills N o. f ever N o. S KIN: rashes Y es. l esions N o. A LLERGY: runny nose N o. i tchy eyes N o. s tuffy nose?No. E NT: epistaxis N o. c hange in voice N o. r inging in ears N o. d izziness N o. a llergies N o. s ore throat N o. h earing loss N o. C ARDIOLOGY: chest pain N o. i rregular heart rhythm N o. c oumadin/blood thinners N o. E NDOCRINOLOGY: diabetes N o. c old intolerance N o. h eat intolerance N o. t hryoid disease N o. G ASTROENTEROLOGY: nausea N o. v omiting N o. h eartburn N o.?difficulty swallowing N o. d iarrhea N o. A UTO-IMMUNE: lupus N o. r heumatoid arthritis N o. ? H EMATOLOGY/LYMPH: easy bruising N o. a nemia N o. O PHTHALMOLOGY: blurring of vision N o. R ESPIRATORY: shortness of breath N o. C ough N o. W heezing?No. N EUROLOGY: headache N o. m sadie loss N o. g ait abnormality N o. * Medical History: P ertinent Medical History: Eye problems, Vision changes, Anxiety/Depression, . * Surgical History: t onsillectomy , ankle surgery , appendectomy . * Family History: F ather: Yes. M other: Yes. C hildren: No. P aternal Grand Father: No. P aternal Grand Mother: No. M aternal Grand Father: No. M aternal Grand Mother: No. * Social History: O ccupation: Yes. Passive smoke exp: No. Smoking N o,. S mokeless Tobacco: No. Alcohol?No,. R ecreational drug use: No. * Medications: T aking diclofenac sodium 25 mg delayed release tablet 1 tab(s) orally 4 times a day, Taking meclizine 25 mg tablet 1 tab(s) orally 3 times a day, Taking pantoprazole 40 mg delayed release tablet 1 tab(s) orally once a day, Taking buPROPion 100 mg tablet 1 tab(s) orally 2 times a day, Taking Prevastatin qd, Medication List reviewed and reconciled with the patient * Allergies: N .K.D.A. Objective: * Examination: C onstitutional: General A lert & Oriented x3, no acute distress, appears stated age. N utritional Status w ell nourished. H ead: N C/AT, no alopecia. I ntegumentary: Face n o lesions. N roberto n o lesions. O ther locations n o lesions, no rashes. E ar: External ear: p ramakrishna without erythema. E xternal Auditory Canal c lear bilaterally. M iddle ear: r ight TM intact, left TM intact, no effusion.?Tube status: n egative for PE tubes. T M perforation: n egative for perforation. Foreign body: n egative for foreign body. T gram: n ot performed. A udiogram:?not done. R homberg n ot done. N ose: Nasal dorsum: m idline. S eptum: m idline, equal airway, no hematoma, no abscess. I nferior turbinates: n ormal pink. M iddle turbinates:?normal. S ecretions: n one. F oreign body: n one seen. O ral/Oropharynx: Normal-Oral/Oropharynx: n o bifid uvula, mucous membranes moist. T eeth: g ood dentition. F OM: n o lesions. T ongue: n ormal without lesion. P alate: n o lesions. O ropharynx: n o erythema or exudate. T onsils 2 +. N roberto: Normal Neck: s upple, no masses. T rachea: m idline. T hyroid: n o thyromegaly, non-tender. T MJ: n o crepitance, good joint motion, no popping or clicking. S ubmandibular [place] n o masses palpated. L ymphatic: Lymphatic Exam N o neck lymphadenopathy. ? E yes: Eye exam P ERRLA, vision intact bilaterally, EOMI, no ectropion, no scleral hemorrhage, no exophthalmos, No nystagmus. C ardiovascular: Cardiovascular Exam P ulses are symmetric, no JVD, no peripheral edema noted. H eart n ot auscultated. R espiratory: Respiratory Exam B reathing is non-labored, no audible wheezing, no stridor, no use of accessory muscles. L ungs n ot auscultated. ? N eurological: Cranial Nerves: I I-XII grossly intact, no focal deficits noted. G ait: n ormal. O rientation A lert & oriented x3. Assessment: * Assessment: 1. A brasion of right ear, initial encounter - S00.411A (Primary) Plan: * Treatment: * Follow Up: p rn * Images: * Sign off status: Completed true * Provider: Tanisha Enriquez, DO Date: 0 07/08/2023 Generated for Nasrin strickland/Rubin/Markoitting on: 0 12/20/2024 11:35 AM HOSP[facility] SUPERINTENDENT History and Physical Notes * Examination Category Sub-Category Detail Notes Category Not es Ear External ear: pinna without erythema Middle ear: right TM intact, lef t TM intact, no effusion Tube status: negative for PE tube s TM perforation: negative for perfora tion Foreign body: negative for foreign body Tgram: not performed Audiogram: not done Rhomberg not done External Auditory Canal clear bilaterall y Nose Nasal dorsum: midline Septum: midline, equal airwa y, no hematoma, no abscess Inferior turbinates: normal pink Middle turbinates: normal Secretions: none Foreign body: none seen Oral/Oropharynx Normal-Oral/Oropharynx: no bifid uvula , mucous membranes moist Teeth: good dentition FOM: no lesions Tongue: normal without lesio n Palate: no lesions Oropharynx: no erythema or exuda te Tonsils 2+ Neck Normal Neck: supple, no masses Trachea: midline Thyroid: no thyromegaly, non- tender TMJ: no crepitance, good joint motion, no popping or clicking Submandibular [place] no masses palpate d Neurological Cranial Nerves: II-XII grossly intact, no focal deficits noted Gait: normal Orientation Alert & oriented x3 Head NC/AT, no alopecia Eyes Eye exam PERRLA, vision i ntact bilaterally, EOMI, no ectropion, no scleral hemorrhage, no exophthalmos, No nystagmus Cardiovascular Cardiovascular Exam Pulses are s ymmetric, no JVD, no peripheral edema noted Heart not auscultated Respiratory Respiratory Exam Breathing is no n-labored, no audible wheezing, no stridor, no use of accessory muscles Lungs not auscultated Integumentary Face no lesions Neck no lesions Other locations no lesions, no rashe s Constitutional General Alert & Oriented x3, no acute distress, appears stated age Nutritional Status well nourished Lymphatic Lymphatic Exam No neck lymphadenopathy
--- OUTSIDE RECORDS SUMMARY | 2024-12-20 11:36 | XMS_ITS | Patient Health Record ---
Author Organization [email or web address] Address [address] [facility] [address] [address] Care Team Providers Care Sole Cutter Name Role Phone Carolyne Mon MD Primary Care Provider Unavail able OvidiotkVanessav Unavailable [phone] Reason For Referral No Information Problems Problem Type SNOMED Code ICD Code Onset Dates Problem Status W/U Status Risk Notes Problem [id number] Iron deficiency anemia, unspecified (D50.9) Active confirmed Problem [id number] Diverticulosis o f large intestine without perforation or abscess without bleeding (K57.30) Active confirmed Plan Of Treatment No Information Insurance Providers Payer Name Payer Address Payer Phone Subscriber Number Group Number Insured Name Patient Relationship to Insured Coverage Start Date Coverage End Date [facility] Choice/ choice Plus [id number] [address] [address] [place] [phone] [id number] Chau Branham Self - patient is the insured
--- OUTSIDE RECORDS SUMMARY | 2024-12-20 11:36 | XMS_ITS ---
Author Organization [facility] Address [address], [place] [address] Care Team Providers Care Cashier Payments Received Name Role Phone Carolyne Mon Primary Care Provider Unavailjovana Fuller MD, Ollie Unavailable Rita Rivero NP Unavailable [phone] REASON FOR VISIT Knees Encounters Encounter Location Date Provider Diagnosis [facility] [address] [place] [address] 10/23/2024 Rita Rivero NP PLAN OF TREATMENT No Information
--- NOTE | 2024-12-20 11:45 | ED.SKABFB ---
HPI - Skin/Abscess/Foreign Bdy General Chief complaint: Skin/Abscess/Foreign Body Stated complaint: poss shingles Time Seen by Provider: 12/20/24 11:45 Source: patient, RN notes reviewed and old records reviewed Mode of arrival: ambulatory Limitations: no limitations History of Present Illness HPI narrative: patient presents accompanied by his . He is complaining of pain on the right side of his face, near the eye, that he reports is the same as past outbreaks of shingles. he does report history of chickenpox. States that he was diagnosed with herpes zoster via blood test several years ago. Reports that he has never had a rash, just gets pain trigeminal area. Reports that he awakened with this same pain this morning. States that Valtrex as help this symptom in the past. He is requesting prescription for same. Related Data Home Medications ?Medication ?Instructions ?Recorded ?Confirmed ?Last Taken ?Type Pravachol 12/20/24 Unknown History Pristiq 12/20/24 Unknown History Allergies Allergy/AdvReac Type Severity Reaction Status Date / Time No Known Allergies Allergy Verified 12/20/24 11:43 Review of Systems Review of Systems: All systems reviewed & are unremarkable except as noted in HPI and below Constitutional: Constitutional: Reports no additional constitutional complaints Eyes: Eyes: Reports as per HPI ENT: Reports system reviewed and no additional complaints, except as documented Cardiovascular: Cardiovascular: Reports no additional cardiovascular complaints Respiratory: Respiratory: Reports no additional respiratory complaints Gastrointestinal: Gastrointestinal: Reports no additional gastrointestinal complaints PMFSH Comments At the time of my signature, I reviewed and agree with the nursing past medical, surgical, social, and family history. There is no relevant family history pertinent to the patient complaint. Exam Const: General: cooperative, no acute distress, alert and awake Orientation/consciousness: oriented to person, oriented to place and oriented to time HENMT: Head: normal to inspection Ears: TM's normal bilaterally Mouth: Yes moist mucous membranes Throat: posterior oropharynx normal Resp: Effort & Inspection: normal respiratory effort and able to speak in complete sentences Auscultation: clear to auscultation bilaterally, no crackles, no rales, no rhonchi and no wheezes Cardio: Palpation: normal PMI Rate: regular rate Rhythm: regular rhythm Heart sounds: S1 normal heart sound present and S2 normal heart sound present Skin: General skin exam: normal color and no rashes or lesions noted Neuro: General: oriented to person, oriented to place and oriented to time Cranial nerves: Yes CN's II-XII intact bilaterally Psych: Appearance: grossly normal Thought process: Normal thought process present Insight: Good insight present (Psych) Judgement: Good judgement present (Psych) Course Course Level of Care: Express Care Visit Vital Signs Vital signs: Vital Signs Temperature 98.0 F 12/20/24 11:36 Pulse Rate 76 12/20/24 11:36 Respiratory Rate 20 12/20/24 11:36 Blood Pressure 146/98 H 12/20/24 11:36 Pulse Oximetry 100 12/20/24 11:36 Oxygen Delivery Room Air 12/20/24 11:36 Temperature 98.0 F 12/20/24 11:36 Pulse Rate 76 12/20/24 11:36 Respiratory Rate 20 12/20/24 11:36 Blood Pressure 146/98 H 12/20/24 11:36 Pulse Oximetry 100 12/20/24 11:36 Oxygen Delivery Room Air 12/20/24 11:36 Reviewed MDM - Skin/Abscess/Foreign Bdy MDM Narrative Medical decision making narrative: Patient with history of herpetic neuralgia successfully treated with Valtrex in the past is presenting with same symptoms today. No visible rash noted. Start Valtrex. Discharge instructions reviewed with patient, as well as provided in writing per nursing staff. The instructions also include specific and strict return/GO TO THE ER as well as f/u information. All questions have been answered, and the patient deny any further questions with discharge and discharge plan. Some parts of this dictation were generated by voice recognition software and may contain typographical and/or grammatical inaccuracies. Differential Diagnosis Differential diagnosis: Likely abscess of skin or subcutaneous tissue and herpes zoster Medical Records Attestation: I reviewed the patient's medical records. Discharge Plan Discharge Clinical Impression: Herpes zoster Qualifiers: Herpes zoster complications: without complications Qualified Code(s): B02.9 - Zoster without complications Patient Disposition: Home, Self-Care Condition: Stable Instructions: Antibiotic Form, Shingles (ED) Additional Instructions: take medications as prescribed. Follow-up with primary care provider. Emergency department for new or worse symptoms Patient Language: Maori Prescriptions: New valacyclovir [Valtrex] 1 gram tablet 1,000 mg PO Q8H 7 Days Qty: 21 0RF No Action Pravachol Pristiq Follow-up/Referrals: PHYSICIAN NOT ON STAFF,NONSTAFF [Primary Care Provider] - Time of Disposition: 12:13
== END 2024-12-20 12:19 | disposition home or self-care (01) ==
PROVIDERS: Emergency Provider Nurse Practitioner Family
DX: B02.9 Zoster without complications (principal); E78.00 Pure hypercholesterolemia, unspecified
CPT/HCPCS: 99203; G0463